=== PATIENT | female | born 1990 | race Caucasian/White ===

== ENCOUNTER 2021-11-20 00:48 | Emergency (ER) | payer SELFPAY ==
[2021-11-20 02:00] LABS: BASOPHIL 0.8 % (0-2); EOSINOPHIL 5.7 % (0-5); HCT 30.3 % (37.0-47.0); HGB 8.7 g/dl (12.5-16.0); LYMPHOCYTE 22.6 % (15-48); MCH 20.7 pg (25.0-31.0); MCHC 28.7 g/dL (32.0-36.0); MONOCYTE 5.4 % (0-12); MPV 10.6 fL (6.0-9.5); NEUTROPHIL 64.8 % (41-80); NRBC 0; PLT 291 K/uL (150-400); RBC 4.21 M/uL (4.20-5.40); RDW 17.9 % (11.5-14.0); WBC 8.5 K/uL (4.0-10.5)
[2021-11-20 02:17] LABS: ALBUMIN 2.9 g/dL (3.4-5.0); BILIRUBIN - TOTAL 0.2 mg/dL (0.2-1.0); BUN/CREAT RATIO (CALC) 16.7 RATIO; CREATININE 0.66 mg/dL (0.51-0.95); POTASSIUM 3.8 mmol/L (3.5-5.1); TOTAL PROTEIN 6.9 g/dL (6.4-8.2)
[2021-11-20 02:36] LABS: CORONAVIRUS 2019 SARS-COV-2 NEGATIVE (NEGATIVE); INFLUENZA A NAA NEGATIVE (NEGATIVE)
[2021-11-20 03:03] LABS: BILIRUBIN NEGATIVE (NEGATIVE); BLOOD 3+ Ery/uL (NEGATIVE); CLARITY HAZY (CLEAR); COLOR YELLOW (YELLOW); GLUCOSE (U) NORMAL (NORMAL); LEUKOCYTES 1+ Leu/uL (NEGATIVE); NITRITE NEGATIVE (NEGATIVE); PROTEIN NEGATIVE (NEGATIVE); UROBILINOGEN 0.2 mg/dL (0.2-1.0)
[2021-11-20 03:07] LABS: AMORPHOUS URATES CRYSTALS TRACE; BACTERIA 1+
[2021-11-20] MEDS ORDERED: PROMETHEGA12.5 MG/SU PR (05:03)
== END 2021-11-20 05:25 | disposition home or self-care (01) ==
LOC: FER 00:48
PROVIDERS: Internal Medicine
DX: R10.32 Left lower quadrant pain (principal); R11.2 Nausea with vomiting, unspecified; F17.210 Nicotine dependence, cigarettes, uncomplicated; Z20.822 Contact with and (suspected) exposure to COVID-19; Z88.0 Allergy status to penicillin; Z88.5 Allergy status to narcotic agent; Z88.6 Allergy status to analgesic agent; Z88.8 Allergy status to other drugs, medicaments and biological substances; Z91.040 Latex allergy status; Z91.041 Radiographic dye allergy status
CPT/HCPCS: 36415; 80053; 81001; 83690; 85025; J1170; J1200; J2405; J2550; U0002

== ENCOUNTER 2021-11-20 21:15 | Emergency (ER) | payer SELFPAY ==
[~2021-11-20 21:15] MED LIST: PROMETHEGA12.5 MG/SU PR
[2021-11-20 22:50] LABS: BASOPHIL 0.8 % (0-2); EOSINOPHIL 5.1 % (0-5); HGB 8.9 g/dl (12.5-16.0); LYMPHOCYTE 21.9 % (15-48); MCH 20.5 pg (25.0-31.0); MCHC 28.7 g/dL (32.0-36.0); MCV 71.3 fL (78.0-100.0); MONOCYTE 5.7 % (0-12); MPV 10.3 fL (6.0-9.5); NEUTROPHIL 65.7 % (41-80); NRBC 0; PLT 282 K/uL (150-400); RBC 4.35 M/uL (4.20-5.40); RDW 17.9 % (11.5-14.0); WBC 9.2 K/uL (4.0-10.5)
[2021-11-20 23:08] LABS: ALBUMIN 2.9 g/dL (3.4-5.0); ALKALINE PHOSHATASE 133 U/L (46-116); ALT <6 U/L (14-59); AST 14 U/L (15-37); BILIRUBIN - TOTAL 0.1 mg/dL (0.2-1.0); BUN 11 mg/dL (7-18); BUN/CREAT RATIO (CALC) 17.2 RATIO; CHLORIDE 103 mmol/L (98-107); CO2 (BICARBONATE) 27 mmol/L (21-32); CREATININE 0.64 mg/dL (0.51-0.95); GLOBULIN (CALCULATION) 4.1 g/dL; GLUCOSE 87 mg/dL (74-106); LIPASE 95 U/L (73-393); POTASSIUM 3.8 mmol/L (3.5-5.1)
== END 2021-11-20 23:10 | disposition left against medical advice (07) ==
LOC: FER 21:15
PROVIDERS: Nurse Practitioner Family
DX: R10.9 Unspecified abdominal pain (principal); R11.2 Nausea with vomiting, unspecified; D64.9 Anemia, unspecified; Z53.29 Procedure and treatment not carried out because of patient's decision for other reasons; Z88.0 Allergy status to penicillin; Z88.5 Allergy status to narcotic agent; Z88.6 Allergy status to analgesic agent; Z88.8 Allergy status to other drugs, medicaments and biological substances; Z91.040 Latex allergy status; Z91.041 Radiographic dye allergy status
CPT/HCPCS: 36415; 80053; 83690; 85025; 99283; J2550; J7030